=== PATIENT | male | born 1990 | race Caucasian/White ===

== ENCOUNTER → 2019-07-14 | Outpatient (CLI) | payer OTHER | LOC: GMAM 12:31 | PROVIDERS: ATTEND Family Medicine | DX: M79.10 Myalgia, unspecified site (principal); G64 Other disorders of peripheral nervous system; G62.9 Polyneuropathy, unspecified ==

== ENCOUNTER → 2019-09-04 | Outpatient (CLI) | payer OTHER | LOC: GMAM 14:52 | PROVIDERS: ATTEND Family Medicine | DX: G64 Other disorders of peripheral nervous system (principal) ==